=== PATIENT | male | born 1995 | race African-American/Black ===

== ENCOUNTER 2025-01-05 18:15 | Emergency (ER) | payer OTHER ==
[~2025-01-05] VITALS: Ht 188 cm; Wt 107.0 kg
[2025-01-05 18:18] VITALS: O2SAT 96
[2025-01-05 18:47] VITALS: BP 127/70; PULSE 77; RESP 18; TEMP 36.9; O2SAT 100
== END 2025-01-05 21:57 | disposition left against medical advice (07) ==
LOC: ER 18:15
DX: J02.9 Acute pharyngitis, unspecified (principal); R51.9 Headache, unspecified; Z53.21 Procedure and treatment not carried out due to patient leaving prior to being seen by health care provider